=== PATIENT | female | born 1955 | race African-American/Black ===

== ENCOUNTER 2023-05-19 05:38 | Inpatient (IN) | payer MEDICARE, MEDICAID ==
[~2023-05-19] VITALS: Ht 162.6 cm; Wt 50.8 kg
[2023-05-19 06:45] LABS: BASOPHILS % 0.7 % (0.0-2.0); DIFFERENTIAL COMMENT 0; HEMATOCRIT. 22.3 % (36.0-48.0); HEMOGLOBIN. 7.3 g/dL (12.0-16.0); LYMPHOCYTES % 10.3 % (20.0-50.0); MEAN CORPUSCULAR HEMOGLOBIN 29.3 pg (28.0-32.0); MEAN CORPUSCULAR HGB CONC 32.8 g/dL (31.0-37.0); MEAN CORPUSCULAR VOLUME 89.4 fL (81.0-99.0); MEAN PLATELET VOLUME 10.8 fl (7.4-10.4); MONOCYTES % 7.5 % (2.0-8.0); NEUTROPHILS % 81.5 % (40.0-76.0); PLATELET 62 x1000/uL (130-400); RED BLOOD CELL COUNT 2.49 mill/uL (4.2-5.4); RED CELL DISTRIBUTION WIDTH 21.9 % (11.6-14.6); WHITE BLOOD COUNT 6.7 x1000/uL (4.5-11.0)
[2023-05-19 07:06] LABS: ALANINE AMINOTRANSFERASE < 7 IU/L (10-49); ALBUMIN 2.3 g/dL (3.2-4.8); ASPARTATE AMINOTRANSFERASE 12 IU/L (<34); BILIRUBIN TOTAL 0.3 mg/dL (0.1-1.0); CALCIUM 6.8 mg/dL (8.7-10.4); CARBON DIOXIDE 25 mEq/L (21-32); CHLORIDE 106 mEq/L (98-107); CREATININE 1.1 mg/dL (0.6-1.0); GLUCOSE 84 mg/dL (70-105); POTASSIUM 3.7 mEq/L (3.5-5.1); PROTEIN TOTAL 5.4 g/dL (6.0-8.3); SODIUM 138 mEq/L (136-145); UREA NITROGEN BLOOD 14 mg/dL (9-23)
[2023-05-19 07:43] LABS: TROPONIN I HIGH SENSITIVITY 95 ng/L (3.0-34)
[2023-05-19] MEDS: LEVOFLOXACIN 750MG PREMIX 150 ML IV ONE (09:37)
[2023-05-19] MEDS ORDERED: IPRATROPIUM/ALBUTEROL 0.5-3(2.5)MG/3ML NEB HHN PRN (10:00)
[2023-05-19] MEDS ORDERED: ONDANSETRON HCL 4MG/2ML INJ IV PRN (10:00)
[2023-05-19] MEDS ORDERED: CLONIDINE 0.1MG TABLET PO PRN (10:00)
[2023-05-19 14:30] VITALS: BP 124/70; PULSE 88; RESP 18; TEMP 97.9
[2023-05-19] MEDS ORDERED: IOHEXOL-350 100 ML BOTTLE ONE (14:36)
[2023-05-19 20:00] VITALS: BP 125/72; PULSE 92; RESP 18; TEMP 97.5
[2023-05-20] VITALS (10 sets, daily range): BP systolic 126–150; BP diastolic 68–76; PULSE 85–99; RESP 16–19; TEMP 96.8–98.4; O2SAT 92–96
[2023-05-20] MEDS: SODIUM CHLORIDE 0.9% 1,000 ML IV SCH (00:48)
[2023-05-20] MEDS: DIPHENHYDRAMINE 50MG/ML VIAL IV PRN (00:49)
[2023-05-20] MEDS: IPRATROPIUM/ALBUTEROL 0.5-3(2.5)MG/3ML NEB HHN SCH (03:26)
[2023-05-20 07:45] LABS: ALANINE AMINOTRANSFERASE < 7 IU/L (10-49); ALBUMIN 2.4 g/dL (3.2-4.8); ASPARTATE AMINOTRANSFERASE 10 IU/L (<34); BILIRUBIN TOTAL 0.3 mg/dL (0.1-1.0); CALCIUM 7.2 mg/dL (8.7-10.4); CARBON DIOXIDE 24 mEq/L (21-32); CHLORIDE 106 mEq/L (98-107); CREATININE 1.1 mg/dL (0.6-1.0); GLUCOSE 64 mg/dL (70-105); POTASSIUM 4.3 mEq/L (3.5-5.1); SODIUM 137 mEq/L (136-145); UREA NITROGEN BLOOD 15 mg/dL (9-23)
[2023-05-20 08:08] LABS: HEMATOCRIT. 21.8 % (36.0-48.0); HEMOGLOBIN. 7.2 g/dL (12.0-16.0); MEAN CORPUSCULAR HEMOGLOBIN 29.6 pg (28.0-32.0); MEAN CORPUSCULAR HGB CONC 33.1 g/dL (31.0-37.0); MEAN CORPUSCULAR VOLUME 89.5 fL (81.0-99.0); MEAN PLATELET VOLUME 11.2 fl (7.4-10.4); RED BLOOD CELL COUNT 2.44 mill/uL (4.2-5.4); RED CELL DISTRIBUTION WIDTH 21.7 % (11.6-14.6)
[2023-05-20 08:22] LABS: DIFFERENTIAL COMMENT 1; PLATELET 47 x1000/uL (130-400)
[2023-05-20] MEDS ORDERED: LEVOFLOXACIN 500MG PREMIX 100 ML IV SCH (10:00)
[2023-05-20] MEDS: LEVOFLOXACIN 250MG PREMIX 50 ML IV SCH (11:23)
[2023-05-21] VITALS (10 sets, daily range): BP systolic 136–151; BP diastolic 62–83; PULSE 86–115; RESP 16–20; TEMP 96.6–98.7; O2SAT 93–96
[2023-05-21 00:59] LABS: ANISOCYTOSIS 2+; PLATELET ESTIMATE MARKEDLY DECREASED
[2023-05-21 06:16] LABS: HEMATOCRIT. 21.6 % (36.0-48.0); HEMOGLOBIN. 7.1 g/dL (12.0-16.0); MEAN CORPUSCULAR HEMOGLOBIN 29.7 pg (28.0-32.0); MEAN CORPUSCULAR HGB CONC 32.9 g/dL (31.0-37.0); MEAN CORPUSCULAR VOLUME 90.4 fL (81.0-99.0); MEAN PLATELET VOLUME 10.5 fl (7.4-10.4); PLATELET 54 x1000/uL (130-400); WHITE BLOOD COUNT 6.1 x1000/uL (4.5-11.0)
[2023-05-21 06:24] LABS: CALCIUM 7.3 mg/dL (8.7-10.4); CARBON DIOXIDE 22 mEq/L (21-32); CHLORIDE 108 mEq/L (98-107); GLUCOSE 67 mg/dL (70-105); POTASSIUM 4.5 mEq/L (3.5-5.1); SODIUM 137 mEq/L (136-145); UREA NITROGEN BLOOD 14 mg/dL (9-23)
[2023-05-21 07:02] LABS: DIFFERENTIAL COMMENT 1
[2023-05-21] MEDS ORDERED: MENTHOL/LANOLIN/CALAMINE/ZN OX OINT 71GM TOP PRN (11:00)
[2023-05-21] MEDS ORDERED: TAMS-11 MT (14:25)
[2023-05-21] MEDS ORDERED: LISI2.5T47 MT (14:26)
[2023-05-21] MEDS ORDERED: CHLO25TA2 PO (14:34)
[2023-05-21] MEDS ORDERED: OMEP40CA20 PO (14:36)
[2023-05-21] MEDS ORDERED: AMLO10TA80 PO (14:36)
[2023-05-21 15:00] LABS: PLATELET ESTIMATE DECREASED
[2023-05-21] MEDS ORDERED: *PATIENT'S OWN MEDICATION STORAGE XX SCH (15:00)
[2023-05-22] VITALS (10 sets, daily range): BP systolic 113–145; BP diastolic 66–80; PULSE 91–109; RESP 16–20; TEMP 96.9–98.1; O2SAT 96–97
[2023-05-22 07:43] LABS: CALCIUM 7.1 mg/dL (8.7-10.4); CARBON DIOXIDE 20 mEq/L (21-32); CHLORIDE 107 mEq/L (98-107); GLUCOSE 61 mg/dL (70-105); POTASSIUM 4.8 mEq/L (3.5-5.1); SODIUM 134 mEq/L (136-145); UREA NITROGEN BLOOD 12 mg/dL (9-23)
[2023-05-22 07:44] LABS: HEMATOCRIT. 21.7 % (36.0-48.0); HEMOGLOBIN. 7.1 g/dL (12.0-16.0); MEAN CORPUSCULAR HGB CONC 32.6 g/dL (31.0-37.0); MEAN PLATELET VOLUME 10.2 fl (7.4-10.4); PLATELET 72 x1000/uL (130-400); RED BLOOD CELL COUNT 2.36 mill/uL (4.2-5.4); RED CELL DISTRIBUTION WIDTH 21.9 % (11.6-14.6); WHITE BLOOD COUNT 6.4 x1000/uL (4.5-11.0)
[2023-05-22 07:58] LABS: DIFFERENTIAL COMMENT 1
[2023-05-22] MEDS: OMEPRAZOLE 20MG CAPSULE EXTENDED RELEASE PO SCH (08:06)
[2023-05-22] MEDS: AMLODIPINE 10MG TABLET PO SCH (09:08)
[2023-05-22] MEDS: LISINOPRIL 2.5MG TABLET PO SCH (09:08)
[2023-05-22] MEDS: TAMSULOSIN HCL 0.4MG SR CAPSULE PO SCH (09:09)
[2023-05-22] MEDS: CHLORTHALIDONE 25MG TABLET PO SCH (09:09)
[2023-05-22] MEDS: LEVOFLOXACIN 750MG PREMIX 150 ML IV SCH (10:58)
[2023-05-22 11:34] LABS: HYPOCHROMASIA 1+
[2023-05-22 11:35] LABS: ANISOCYTOSIS 2+; PLATELET ESTIMATE DECREASED
[2023-05-22 12:19] LABS: BG BASE EXCESS -3.8 mmol/L (-2.0-2.0); BG CARBOXYHEMOGLOBIN 2.1 % (0.5-1.5); BG DEOXYHEMOGLOBIN 11.1 % (0.0-5.0); BG HCO3 ACT 18.6 mmol/L (22.0-26.0); BG METHEMOGLOBIN 0.1 % (0.0-1.5); BG OXYGEN SATURATION 88.7 % (92.0-98.5); BG OXYHEMOGLOBIN 86.7 % (94.0-97.0); BG PCO2 24.9 mmHg (35.0-45.0); BG PH 7.492 (7.350-7.450); BG PO2 53.7 mmHg (75.0-100.0); BG SAMPLE SITE ALINE; BG TOTAL HEMOGLOBIN 8.4 g/dL (12.0-18.0); BG VENT MODE ROOM AIR
[2023-05-22 12:36] LABS: IRON 32 ug/dL (50-170); TOTAL IRON BINDING CAPACITY 152 ug/dl (250-425)
[2023-05-22] MEDS: GUAIFENESIN-DM 200MG-20MG/10ML UDC PO PRN (14:48)
[2023-05-23] VITALS (9 sets, daily range): BP systolic 117–147; BP diastolic 64–79; PULSE 82–105; RESP 18–20; TEMP 97.1–98.2; O2SAT 97
[2023-05-23 06:39] LABS: BASOPHILS % 0.2 % (0.0-2.0); EOSINOPHILS % 0.1 % (0.0-5.0); HEMATOCRIT. 23.5 % (36.0-48.0); HEMOGLOBIN. 7.7 g/dL (12.0-16.0); MEAN CORPUSCULAR HEMOGLOBIN 29.4 pg (28.0-32.0); MEAN CORPUSCULAR HGB CONC 32.6 g/dL (31.0-37.0); MEAN CORPUSCULAR VOLUME 90.3 fL (81.0-99.0); MEAN PLATELET VOLUME 9.6 fl (7.4-10.4); NEUTROPHILS % 79.7 % (40.0-76.0); PLATELET 90 x1000/uL (130-400); RED BLOOD CELL COUNT 2.61 mill/uL (4.2-5.4); RED CELL DISTRIBUTION WIDTH 21.7 % (11.6-14.6); WHITE BLOOD COUNT 6.1 x1000/uL (4.5-11.0)
[2023-05-23 06:47] LABS: CALCIUM 7.6 mg/dL (8.7-10.4); CARBON DIOXIDE 21 mEq/L (21-32); CHLORIDE 105 mEq/L (98-107); GLUCOSE 62 mg/dL (70-105); POTASSIUM 4.9 mEq/L (3.5-5.1); SODIUM 133 mEq/L (136-145); UREA NITROGEN BLOOD 12 mg/dL (9-23)
[2023-05-23] MEDS: ACETAMINOPHEN 325MG TABLET PO PRN (17:49)
[2023-05-24] VITALS (8 sets, daily range): BP systolic 103–130; BP diastolic 57–70; PULSE 88–108; RESP 18–20; TEMP 97.1–98.2
[2023-05-24] MEDS: SODIUM CHLORIDE 45ML SPRAY NS PRN (08:35)
[2023-05-24] MEDS ORDERED: LEVO750T68 MT (16:28)
[2023-05-24 17:54] LABS: BG BASE EXCESS -1.6 mmol/L (-2.0-2.0); BG CARBOXYHEMOGLOBIN 2.4 % (0.5-1.5); BG DEOXYHEMOGLOBIN 7.7 % (0.0-5.0); BG FRACTION INSPIRED OXYGEN 21; BG HCO3 ACT 21.6 mmol/L (22.0-26.0); BG METHEMOGLOBIN 0.2 % (0.0-1.5); BG OXYGEN SATURATION 92.1 % (92.0-98.5); BG OXYHEMOGLOBIN 89.7 % (94.0-97.0); BG PH 7.475 (7.350-7.450); BG SAMPLE SITE RIGHT BRACHIAL; BG VENT MODE ROOM AIR
[2023-05-25] VITALS (7 sets, daily range): BP systolic 100–146; BP diastolic 53–92; PULSE 53–95; RESP 18–20; TEMP 97.2–97.7; O2SAT 97
== END 2023-05-25 22:25 | disposition home health service (06) | DRG 720 ==
LOC: ER 05:38 → 7WST 09:05 → EDBEDREQ 09:07
PROVIDERS: ADMIT Internal Medicine; ATTEND Internal Medicine
DX: A41.9 Sepsis, unspecified organism (principal); J96.01 Acute respiratory failure with hypoxia; G93.41 Metabolic encephalopathy; E43 Unspecified severe protein-calorie malnutrition; J18.9 Pneumonia, unspecified organism; D69.6 Thrombocytopenia, unspecified; C64.9 Malignant neoplasm of unspecified kidney, except renal pelvis; J44.0 Chronic obstructive pulmonary disease with (acute) lower respiratory infection; C78.00 Secondary malignant neoplasm of unspecified lung; N13.6 Pyonephrosis; D64.9 Anemia, unspecified; I10 Essential (primary) hypertension; R65.20 Severe sepsis without septic shock; I48.91 Unspecified atrial fibrillation; Y95 Nosocomial condition; Z95.828 Presence of other vascular implants and grafts; Z85.528 Personal history of other malignant neoplasm of kidney; Z85.118 Personal history of other malignant neoplasm of bronchus and lung; Z68.1 Body mass index [BMI] 19.9 or less, adult
CPT/HCPCS: 36415; 36600; 71045; 71275; 80048; 80053; 82375; 82805; 82962; 83540; 83550; 83880; 84145; 84484; 85025; 93005; 93970; 94640; 97162; 97530; 99291; J1200; J1956; J7030; Q9967